=== PATIENT | female | born 1985 | race Caucasian/White ===

== ENCOUNTER → 2019-10-28 10:49 | Outpatient (CLI) | payer OTHER, SELFPAY ==
[2019-10-28 10:13] VITALS: BMI 31.7
[2019-10-28 11:11] LABS: Absolute Lymphocyte Count 3.75 X10^3/uL (0.83-4.51); Absolute Neutrophil Count 7.8 X10^3/uL (2.0-7.7); Basophil# 0.05 X10^3/uL; Basophil% 0.4 % (0-1); Eosinophil# 0.48 X10^3/uL; Eosinophils% 3.8 % (0-5); Hematocrit 40.4 % (37-47); Lymphocyte # 3.75 X10^3/ul (4.0); Lymphocyte % 29.3 % (19-41); Mean Corp Hgb Conc 32.2 g/dL (32-36); Mean Corpuscular Volume 86.9 fL (81-99); Mean Platelet Vol. 9.8 fl (6.2-12.0); Monocyte# 0.66 X10^3/uL; Monocyte% 5.2 % (0-10); NRBC Flagged by Analyzer 0 % (0-5); Neutrophil % 60.9 % (47-70); Platelet Count 428 K/mm3 (150-450); RBC Distribution Width CV 13.4 % (11.6-14.6); RBC Distribution Width SD 42.5 fl (35.1-43.9); Red Blood Count 4.65 M/mm3 (4.2-5.4); White Blood Count 12.8 K/mm3 (4.4-11.0)
[2019-10-28 11:32] LABS: Thyroid Stim Hormone (TSH) 0.26 uIU/mL (0.358-3.74)
[2019-10-28 12:26] LABS: HIV - WCH Non-Reactive (Nonreactive)
[2019-10-28 13:48] LABS: Chlamydia Trachomatis by PCR Negative (Negative); Neisserai gonorrhoeae by PCR Negative (Negative); Probe Check PASS; Sample Adequacy Control PASS; Specimen Processing Control PASS
[2019-10-28 19:03] LABS: Chlamydia Trachomatis by PCR Negative (Negative); Neisserai gonorrhoeae by PCR Negative (Negative); Probe Check PASS; Sample Adequacy Control PASS; Specimen Processing Control PASS
[2019-10-29 04:31] LABS: Rapid Plasmin Reagin (RPR) NONREACTIVE (NONREACTIVE)
[2019-10-31 17:53] LABS: HSV 2 IgG < 0.91 index (0.00-0.90)
[2019-11-05 05:41] LABS: HPV APTIMA, High Risk Negative (Negative)
[2020-07-15 14:13] VITALS: BMI 35.8
== END ==
PROVIDERS: Nurse Practitioner Women's Health; PCP Family Medicine; Referring Provider Obstetrics & Gynecology; Visit Provider Obstetrics & Gynecology
DX: Z12.4 Encounter for screening for malignant neoplasm of cervix (principal); Z11.3 Encounter for screening for infections with a predominantly sexual mode of transmission
CPT/HCPCS: 36415; 84443; 85025; 86592; 86695; 86696; 86703; 87491; 87591; 87624; 88175; G0145

== ENCOUNTER → 2019-11-04 18:18 | Outpatient (CLI) | payer OTHER, SELFPAY ==
[2019-10-28 10:13] VITALS: BMI 31.7
--- NOTE | 2019-11-04 18:25 | US_ITS ---
STUDY: ULTRASOUND OF THE FEMALE PELVIS - COMPLETE REASON FOR EXAM: Female, 34 years old. HX FIBROIDS HEAVY BLEEDING LMP: TECHNIQUE: Transvaginal TECHNICAL QUALITY: Adequate. COMPARISON: None. FINDINGS: The uterus is anteverted and is in a midline position. The uterus measures 8.8 x 7.6 x 5.2 cm. Multiple nabothian cysts. The endometrium measures 3 mm in thickness, and is hyperechoic. There is no demonstrated endometrial mass. Multiple myometrial masses are present compatible with fibroids. The largest measures up to 4.2 cm in size. I.U.D. - The patient does not have an I.U.D. The right ovary is visualized. The right ovary measures 3.0 x 2.2 x 1.7 cm. There is no right ovarian cyst or ovarian mass. There is no visualized right adnexal mass or complex lesion. There is normal arterial and normal venous vascularity. The left ovary is visualized. The left ovary measures 3.7 x 2.0 x 1.5 cm. There is no left ovarian cyst or ovarian mass. There is no visualized left adnexal mass or complex lesion. There is normal arterial and normal venous vascularity. There is no fluid in the cul-de-sac. Polycystic ovary disease: No. US/Transvaginal Non- IMPRESSION: Multiple myometrial masses are present compatible with fibroids. The largest measures up to 4.2 cm in size. Electronically Signed: Nicholas Velez MD at 19:52 EDT Tel , Service support ,
== END ==
LOC: US 18:19
PROVIDERS: PCP Family Medicine; Visit Provider Nurse Practitioner Women's Health
DX: N92.1 Excessive and frequent menstruation with irregular cycle (principal); D25.9 Leiomyoma of uterus, unspecified
CPT/HCPCS: 76830

== ENCOUNTER 2020-02-24 08:21 | Observation (INO) | payer OTHER, SELFPAY ==
[2020-01-11 11:18] VITALS: BMI 31.7
[2020-02-17 10:42] LABS: Thyroid Stim Hormone (TSH) 0.24 uIU/mL (0.358-3.74)
[2020-02-23] VITALS (14 sets, daily range): BP systolic 95–142; BP diastolic 44–88; PULSE 72–114; RESP 18–22; TEMP 36.4–37.4; O2SAT 90–100; BMI 32.7
[2020-02-23 07:47] LABS: Internal QC Validated? YES +Cl - CLEAR BKGD; Pregnancy, Urine Negative Negative
--- NOTE | 2020-02-23 07:49 | HP.PCM_ITS ---
- Problem List (1) History of endometriosis Status: Acute (2) History of uterine fibroid Status: Acute (3) Menorrhagia with irregular cycle Status: Acute History and Physical Date of Admission: 02/23/20 Intake Vital Signs 01/11/20 Height 5 ft 4 in 01/11/20 Weight: 194 lb 4 oz 01/11/20 BMI 33.3 01/11/20 BP 112/74 Intake Visit Reasons: Surgery consult Senior Commissions Analyst Required: No Is patient in pain?: No Allergies morphine Allergy (Mild, Verified 01/11/20 11:17) other Medications gabapentin 100 mg capsule 100 mg PO TID 10/28/19 [History Confirmed 01/11/20] levothyroxine 150 mcg tablet 150 mcg PO DAILY 10/28/19 [History Confirmed 01/11/20] oxycodone-acetaminophen 5 mg-325 mg tablet 1 tab PO Q8H PRN 10/28/19 [History Confirmed 01/11/20] venlafaxine 75 mg tablet 75 mg PO DAILY 10/28/19 [History Confirmed 01/11/20] zolpidem 10 mg tablet 10 mg PO QHS PRN 10/28/19 [History Confirmed 01/11/20] norethindrone (contraceptive) 0.35 mg tablet 0.35 mg PO QDAY #84 tab 11/17/19 [Rx Confirmed 01/11/20] Post menopausal: No Patient : No : No PFSH Medical History Anxiety and depression (Acute) Endometriosis (Acute) Thyroid cancer (Acute) Surgical History H/O laparoscopy (Acute) H/O thyroidectomy (Acute) History of cholecystectomy (Acute) History of hand surgery (Acute) Family History Father Diabetes Cancer liver Mother Diabetes Social History (Updated 01/12/20 @ 14:[address] 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 She experiences bleeding anywhere 1 to 2 weeks out of every single month. Bleeding lasts 8 days and occurs at intervals of every 2 to 4 weeks. On the heaviest day of her period she is changing a pad and tampon every hour. 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 She has a family history of a father and a paternal uncle who both of liver cancer and these liver tumors are followed with yearly MRIs. She was started on norethindrone, however this has not assisted with her bleeding. She is here today to discuss surgical interventions to manage her heavy pain in pain.She has had 2 EABs, however she has never had a child. She strongly desires future fertility. Female Reproductive History Questions: Metorrhagia: No, Sexually active: No Menopausal Symptoms: No hot flashes Pregancy History 0 Elective abortions Hx Para Spontaneous abortions Hx # Term Pregnancies Ectopic pregnancies Hx # Pregnancies Multiple births # of living children ROS Const Constitutional: Denies chills, fatigue, fever(s), weight gain or weight loss : Reports heavy periods, metrorrhagia and pelvic pain; denies difficulty urinating, painful urination, genital lesions, blood in urine, hot flashes, light periods, prolapse symptoms, sexual problems, urinary frequency, urinary hesitancy, urinary urgency, vaginal discharge, vaginal dryness, vaginal odor or vaginal itching Exam Const General: cooperative, healthy appearing, comfortable, no acute distress, well developed, well groomed Neck Neck: normal visual inspection, full ROM Resp Effort & Inspection: normal respiratory effort, able to speak in complete sentences, symmetric chest movement Cardio Rate: regular rate General: bladder normal to palpation External Female Exam: normal external appearance, normal appearance of the urethra, no lesions, no lacerations Urethra: normal appearance of the urethra Speculum Exam - Vagina: vaginal bleeding, no masses, nontender Speculum Exam - Cervix: nontender Bimanual Exam- Vagina & Uterus: normal vaginal palpation, bladder normal to palpation, No cervical tenderness, uterine mobility normal, normal cervical palpation, uterus non-tender, uterus enlarged, uterus nodular (multiple fibroids - large posterior and left lateral fibroids palpable), nontender OB/External & Speculum: vaginal bleeding Speculum Exam: vaginal bleeding Skin General: no rashes or lesions noted, elasticity normal, turgor normal Lesions: no lesions Rashes: no rashes Neuro General: alert, awake, oriented x3 Cranial Nerves: CN's II-XI intact bilaterally, PERRL, EOM intact bilaterally Cognition: normal cognition Speech: speech normal Gait: normal gait Extrem General: normal to inspection, full ROM, no pedal edema Psych Appearance: grossly normal Mental Status: mental status grossly normal Mood: congruent mood Affect: normal affect Speech and Movement: speech and movement normal Attitude: cooperative Thought Process: normal Thought Content: normal Assessment & Plan 1. Menorrhagia with irregular cycle N92.1 Plan Presents for surgical consult for heavy menstrual bleeding and pelvic pain with fibroid uterus. She has a documented history of endometriosis. Operative report reviewed from diagnostic laparoscopy in 2016-this illustrates evidence of endometriosis involving the uterus and the posterior cul-de-sac. Patient also had some adhesive disease at this point in time. Transvaginal ultrasound reviewed. This shows a total of 10 fibroids with multiple large fibroids measuring up to 4 cm in greatest diameter. And is not a candidate for combination oral contraceptive pills due to a benign hepatic tumor which has the potential to enlarge with estrogen. She has been on progesterone only pills in the past, however has not noticed a significant improvement in her bleeding. Management options discussed with patient including IUD insertion, myomectomy, and hysterectomy. She has never had a child and wishes to maintain her fertility. She is not interested in using IUD for management of bleeding as she would like to become in the near future and would like to make sure that her bleeding is controlled before she begins attempting . Patient would like to proceed with myomectomy.Will also plan for fulguration of endometriosis diagnosed at the time of surgery. We discussed the nature of the procedure to be performed. The risks, benefits, indications, and alternatives to the procedure were discussed with the patient. We discussed the possible risk of bleeding which could result from incising the uterus or from damage to surrounding blood vessels. The patient is agreeable to blood products if medically necessary. We discussed the possibility of infection inside the abdomen or at the incision sites. She understands that if she were to develop an infection she could require hospitalization or antibiotics. We discussed the possibility of damage to structures sitting around the uterus including uterus, tubes, ovaries, bowel, bladder. We discussed that in the event of injury to 1 of the structures she could require intraoperative consult with general surgery or urology and that this could require potential prolonged hospitalization or reoperation.Discussed that the procedure can possibly be performed in a minimally invasive manner using a robotic approach. Discussed that with performing a robotic myomectomy, there is always the chance that the procedure may not be able to be performed minimally invasive and that she could require laparotomy in order to complete the procedure. Patient is agreeable to laparotomy if indicated at the time of surgery. Discussed that I will attempt to remove as many of the fibroids as possible, however there is always a possibility that not all fibroids will be able to be removed. Also discussed that if she were to have excessive bleeding, there is always a possibility of having to perform a hysterectomy at the time of the procedure. Discussed that in the event of damage to either tube or ovary, the structures could have to be removed at the time of surgery. Discussed that I would do everything in my power to avoid removing ovaries, however she is aware that this is a possibility.We discussed performing chromotubation at the completion of the procedure in order to verify that her tubes are open. We discussed that following a myomectomy, she will likely require a section done at 37 weeks in any future pregnancies due to the concern for uterine rupture at the sites of the incisions from the myomectomy. All questions were answered to the best of my ability. The patient voices understanding and agrees to proceed with robotic assisted myomectomy, possible laparotomy, fulguration of endometriosis, chromotubation. Coding Level of Care Code Off vis,est,level 4 Diagnoses Menorrhagia with irregular cycle N92.1 ??Menorrhagia type: with irregular cycle UPDATE- I have seen the patient and performed any clinically relevant updates to the history and physical exam. Cheyenne Ohara MD
[2020-02-23] MEDS: Lactated Ringers 1,000 ML 100 ML IV ×4 (08:13→15:43)
[2020-02-23 08:45] LABS: Hematocrit 39.2 % (37-47); Hemoglobin 12.5 g/dL (12.0-15.0); Mean Corp Hgb Conc 31.9 g/dL (32-36); Mean Corpuscular Hgb 27.5 pg (27.0-32.0); Mean Corpuscular Volume 86.2 fL (81-99); Platelet Count 361 K/mm3 (150-450); RBC Distribution Width CV 12.9 % (11.6-14.6); RBC Distribution Width SD 40.4 fl (35.1-43.9); Red Blood Count 4.55 M/mm3 (4.2-5.4); White Blood Count 8.4 K/mm3 (4.4-11.0)
--- NOTE | 2020-02-23 09:00 | MISC_PTH ---
PATIENT: ELYSE KRAMER LOC: [facility] U#:[id number] AGE/SX: 35/F ROOM: [facility]315 RE02/24/[address]: Dr. Cheyenne Ohara MD : 1985 BED: 1 DIS: 02/25/2020 SPEC #: [id number] RECD: 02/23/20 14:57 STATUS: SUSU PARIKHKee #: [id number] CASI: 02/23/20 09:[address]: Cheyenne Ohara DEPT: SURGICAL PATHOLOGY RECD BY: Amarilys Coley ENTERED: 02/24/20 07:09 SP TYPE: MISC OTHR DR: MD Dr. Adán Wilkinson MD Tissues: Fibrous tissue Procedures: Surgery Specimen Level III HEADER OPERATION: Robotic assisted myomectomy, chromotubation PRE-OP DIAGNOSIS: Menorrhagia with irregular cycle TISSUE SUBMITTED: Uterine fibroids MICROSCOPIC DIAGNOSIS Uterine fibroids: Leiomyomas (largest measuring 6 cm in greatest dimension). DIAMANTE:vernon 02/25/20 MICROSCOPIC DESCRIPTION Slides are reviewed. GROSS DESCRIPTION Received in fixative is one container labeled with the patient's name and designated uterine fibroids. The specimen consists of eight variable sized pieces of meraz nodular masses weighing in aggregate 41 gm and measuring in aggregate 8 x 7 x 3 cm and measuring 1.5 to 6 cm in greatest dimension. Sections of these masses reveal meraz whorled cut surfaces without areas of hemorrhage, necrosis or cystic degeneration. Professional Athlete sections are submitted in four cassettes as follows: 1 - largest nodular mass, 2 - second largest nodular mass, 3 & 4 - smaller nodular masses. / DIAMANTE:vernon 02/24/20 TC:1 CPT: 27997
[2020-02-23] MEDS: Cefazolin 2 GM in 0.9% Normal Saline 100 ML IV (09:06)
[2020-02-23] MEDS: Vasopressin 20 UNITS/ML Vial (10:15)
[2020-02-23] MEDS: Bupivacaine 0.25% 30 ML Vial (12:00)
[2020-02-23] MEDS: Ketorolac 30 MG/ML Syringe IV ×3 (13:05→23:12)
--- NOTE | 2020-02-23 15:19 | SUR.PHASEI ---
telephoned dr randhawa. informed her of pt discomfort. pt vital signs stable. no bleeding noted. abdomen soft. dr verbalized understanding. reported no new orders. continue with current plan of care. pt okay to go upstairs to her room.
[2020-02-23] MEDS: Gabapentin 100 MG Capsule PO ×2 (16:11→18:05)
--- NOTE | 2020-02-23 16:37 | OP.PCM_ITS ---
Problem List (1) History of endometriosis Status: Acute (2) History of uterine fibroid Status: Acute (3) Menorrhagia with irregular cycle Status: Acute Report of Operation Date of Procedure: 02/23/20 Pre-Operative Diagnosis: Abnormal uterine bleeding, fibroid uterus Post-Operative Diagnosis: Same Surgery/Procedure Performed:: Robotic assisted abdominal myomectomy, chromopertubation Description of Surgical Findings:: Fibroid uterus with primarily subserosal fibroids. No evidence of adhesions or endometriosis. Bilateral spill on chromopertubation at completion of procedure. straw hat brim raiser operator: Gillian Rodriguez straw hat brim raiser operator: Saad Glass Type of Anesthesia:: General Special Medications: Ancef 2g Specimen's removed: Uterine fibroids Estimated Blood Loss (mL): 200ml Description of Procedure: The patient was taken to the operating room where general anesthesia was obtained without difficulty. She was prepped and draped in the dorsal lithotomy position with yellowfin stirrups. Attention was first directed to the vagina. A weighted speculum was placed in the posterior aspect of the vagina and a right angle retractor was used to grasp the anterior lip of the cervix. The uterus sounded to 8 cm. The cervix was sequentially dilated to accommodate placement of a ZUMI uterine manipulator. The manipulator was placed without difficulty. A Pedesren catheter was then placed. All instruments were then removed from the vagina other than the manipulator. Gloves were changed and attention was then directed to the abdominal cavity. A 5 mm skin incision was made in the left upper quadrant at Andres's point. Attempt was made to place a varies needle, however the opening pressure was noted to be higher than desired and therefore the decision was made to use the Optiview scope for entry. The port was placed under direct visualization. Abdominal entry was confirmed and the abdomen was insufflated. Initial inspection of the abdominal cavity revealed no evidence of adhesions. The uterus was inspected and primarily subserosal fibroids were noted. Additional accessory trocar was placed in the right upper quadrant. Robotic trochars were placed in the right and left lower quadrants and approximately 2 cm superior to the umbilicus in the midline. The 5 mm port that was placed initially was extended and a 12 mm port was placed. The patient was placed in steep Trendelenburg and the robot was docked. The fibroids were each injected with dilute vasopressin. Incisions were then made through the serosa until the capsule of the fibroid had been transected. A single-tooth tenaculum was then used to grasp the fibroids and a combination of blunt and sharp dissection using the monopolar scissors was performed in order to remove the fibroids. A total of 7 fibroids were removed with 5 of those fibroids being embedded in the myometrium and 2 pedunculated. A total of 4 incisions were made that went into the myometrium with 2 smaller incisions that went directly under the pedunculated fibroids. The uterine cavity was not entered at any point during the dissection or repair of the defects. Strata fix suture was used in multiple layers to close the myometrium. Strata fix suture was then used to reapproximate the mucosa. The 2 smaller serosal defects were then closed in a [id number] fashion using 3-0 Vicryl suture. On the largest defect posteriorly after closing the remainder of the incisions, a small hematoma was noted to be forming. A large figure of 8 was performed through this area and it was noted to be stable in size with no further bleeding. Hemostasis was achieved using bipolar cautery. The pelvis was copiously irrigated and hemostasis was noted. Chromotubation was then performed and spill was noted from the fallopian tubes bilaterally. Devang was placed over the uterus and no further bleeding was noted. The 7 fibroids were then placed into a 12 mm specimen bag. A approximately 6 cm incision was made suprapubically and carried down to the level of the fascia with the scalpel the fascia was nicked in the midline and the incision was extended laterally using blunt traction. The muscles were in the midline and the peritoneum was entered bluntly. The specimen bag was then removed through the incision and it was confirmed that all 7 specimens remain inside the bag. All ports were then removed from the abdominal cavity. The fascia on the suprapubic incision was closed in a running fashion using 0 Vicryl suture. 3-0 Vicryl was then used in a running fashion to reapproximate the subcutaneous space. 4-0 Monocryl was used in a running subcuticular fashion to close the skin. All port sites were then closed in a simple interrupted fashion using 4-0 Monocryl suture. A Mepilex dressing was placed over the suprapubic incision and small OpSite's were then placed over all of the port sites. The uterine manipulator was then removed from the uterine cavity. The procedure was deemed complete. All counts were correct x2. The patient was awakened from anesthesia and taken to the recovery room in stable condition. - Complications None apparent - Admit VTE Documentation VTE Present on Admission: No VTE Mechan Device Prophylaxis: SCD's VTE Pharm Prophylaxis ordered?: No Multi Select Codes - Urinary/Genital Urinary/Genital CPT Codes: 13417 Myomectomy, >5 fibroids >250gr uterus, 57431 Chromotubation
[2020-02-23] MEDS: oxyCODONE 5 MG Tablet PO ×2 (18:06→23:13)
[2020-02-23] MEDS: 0.9% Saline Lock 10 ML Syringe IV (18:06)
[2020-02-23] MEDS: HYDROmorphone 0.5 MG/0.5 ML SYRINGE IV (19:49)
[2020-02-23] MEDS: HYDROmorphone 1 MG/ML Syringe IV (21:57)
[2020-02-23] MEDS: Acetaminophen 500 MG Tablet 1000 MG PO (21:57)
[2020-02-23 21:58] LABS: Absolute Lymphocyte Count 3.51 X10^3/uL (0.83-4.51); Absolute Neutrophil Count 7.5 X10^3/uL (2.0-7.7); Basophil# 0.02 X10^3/uL; Basophil% 0.2 % (0-1); Eosinophil# 0.04 X10^3/uL; Eosinophils% 0.3 % (0-5); Hemoglobin 9.8 g/dL (12.0-15.0); Lymphocyte # 3.51 X10^3/ul (4.0); Lymphocyte % 29.9 % (19-41); Mean Corp Hgb Conc 31.6 g/dL (32-36); Mean Corpuscular Hgb 27.5 pg (27.0-32.0); Mean Corpuscular Volume 86.8 fL (81-99); Mean Platelet Vol. 9.9 fl (6.2-12.0); Monocyte# 0.58 X10^3/uL; Monocyte% 4.9 % (0-10); NRBC Flagged by Analyzer 0 % (0-5); Neutrophil # 7.54 X10^3/uL (2.7-7.7); Neutrophil % 64.4 % (47-70); Platelet Count 305 K/mm3 (150-450); RBC Distribution Width CV 12.9 % (11.6-14.6); RBC Distribution Width SD 41.1 fl (35.1-43.9); Red Blood Count 3.57 M/mm3 (4.2-5.4); White Blood Count 11.7 K/mm3 (4.4-11.0)
[2020-02-23] MEDS: Zolpidem Tartrate 5 MG Tablet PO (23:13)
[2020-02-23] MEDS: Lactated Ringers 1,000 ML 125 ML IV (23:18)
[2020-02-24] MEDS: HYDROmorphone 0.5 MG/0.5 ML SYRINGE 1 MG IV ×2 (02:08→06:09)
[2020-02-24 02:16] VITALS: BP 111/57; PULSE 86; RESP 18; TEMP 36.8; O2SAT 99
[2020-02-24] MEDS: oxyCODONE 5 MG Tablet PO ×5 (03:14→20:13)
[2020-02-24 05:49] LABS: Hematocrit 31.3 % (37-47); Hemoglobin 9.7 g/dL (12.0-15.0); Mean Corpuscular Hgb 27.5 pg (27.0-32.0); Mean Corpuscular Volume 88.7 fL (81-99); Mean Platelet Vol. 9.7 fl (6.2-12.0); Platelet Count 287 K/mm3 (150-450); RBC Distribution Width CV 13.2 % (11.6-14.6); RBC Distribution Width SD 42.5 fl (35.1-43.9); Red Blood Count 3.53 M/mm3 (4.2-5.4); White Blood Count 8.7 K/mm3 (4.4-11.0)
[2020-02-24] MEDS: Ketorolac 30 MG/ML Syringe IV ×3 (05:52→17:57)
[2020-02-24] MEDS: Acetaminophen 500 MG Tablet 1000 MG PO ×3 (05:52→22:39)
[2020-02-24] MEDS: Levothyroxine 150 MCG Tablet PO (05:52)
[2020-02-24 06:03] VITALS: BP 128/57; PULSE 81; RESP 18; TEMP 36.3; O2SAT 99
[2020-02-24 07:20] VITALS: O2SAT 94
[2020-02-24 07:41] VITALS: BP 107/55; PULSE 89; RESP 18; TEMP 36.3; O2SAT 98
[2020-02-24] MEDS: Gabapentin 100 MG Capsule PO ×3 (07:42→16:02)
[2020-02-24] MEDS: Venlafaxine XR 75 MG Capsule PO (07:43)
--- NOTE | 2020-02-24 08:21 | PCM.PN.OB ---
Patient Problems: Active and Suspected Problems (Last Reviewed 01/11/20 @ 11:17 by Sulema Meza) History of endometriosis (Acute) History of uterine fibroid (Acute) Menorrhagia with irregular cycle (Acute) Subjective: Patient seen and examined. Had issues with pain control throughout the night. Has been taking toradol, tylenol, and 10mg of oxycodone with dilaudid for breakthrough. Pain worse on right side and feels like cramps with occasional sharp, shooting pains. Has been tolerating liquids by mouth, but has not really had an appetite. Has passed minimal gas. Denies nausea and vomiting. Reports relief with pain medication, but becomes severe when medications wear off. Objective: Laboratory Tests 02/24/20 02/23/20 02/23/20 Range/Units 05:40 21:42 08:34 WBC 8.7 11.7 H (4.4-11.0) K/mm3 RBC 3.53 L 3.57 L (4.2-5.4) M/mm3 Hgb 9.7 L 9.8 L (12.0-15.0) g/dL Hct 31.3 L 31.0 L (37-47) % MCV 88.7 86.8 (81-99) fL MCH 27.5 27.5 (27.0-32.0) pg MCHC 31.0 L 31.6 L (32-36) g/dL RDW Std Deviation 42.5 41.1 (35.1-43.9) fl RDW Coeff of Dain 13.2 12.9 (11.6-14.6) % Plt Count 287 305 (150-450) K/mm3 MPV 9.7 9.9 (6.2-12.0) fl Immature Gran % (Auto) 0.300 (0.0-0.9) % Neut % (Auto) 64.4 (47-70) % Lymph % (Auto) 29.9 (19-41) % [place] % (Auto) 4.9 (0-10) % Eos % (Auto) 0.3 (0-5) % Baso % (Auto) 0.2 (0-1) % Absolute Neuts (auto) 7.5 (2.0-7.7) X10^3/uL Absolute Lymphs (auto) 3.51 (0.83-4.51) X10^3/uL Nucleated RBC % 0 (0-5) % TSH (0.358-3.74) uIU/mL Urine Test Negative COVID-19 ([facility]) (Not Detected) Blood Type B NEGATIVE Antibody Screen NEGATIVE 02/23/20 02/23/20 02/17/20 Range/Units 08:34 07:43 08:35 WBC 8.4 (4.4-11.0) K/mm3 RBC 4.55 (4.2-5.4) M/mm3 Hgb 12.5 (12.0-15.0) g/dL Hct 39.2 (37-47) % MCV 86.2 (81-99) fL MCH 27.5 (27.0-32.0) pg MCHC 31.9 L (32-36) g/dL RDW Std Deviation 40.4 (35.1-43.9) fl RDW Coeff of Dain 12.9 (11.6-14.6) % Plt Count 361 (150-450) K/mm3 MPV 10.0 (6.2-12.0) fl Immature Gran % (Auto) (0.0-0.9) % Neut % (Auto) (47-70) % Lymph % (Auto) (19-41) % [place] % (Auto) (0-10) % Eos % (Auto) (0-5) % Baso % (Auto) (0-1) % Absolute Neuts (auto) (2.0-7.7) X10^3/uL Absolute Lymphs (auto) (0.83-4.51) X10^3/uL Nucleated RBC % (0-5) % TSH (0.358-3.74) uIU/mL Urine Test Negative Negative COVID-19 ([facility]) Not Detected (Not Detected) Blood Type Antibody Screen 02/17/20 Range/Units 08:34 WBC (4.4-11.0) K/mm3 RBC (4.2-5.4) M/mm3 Hgb (12.0-15.0) g/dL Hct (37-47) % MCV (81-99) fL MCH (27.0-32.0) pg MCHC (32-36) g/dL RDW Std Deviation (35.1-43.9) fl RDW Coeff of Dain (11.6-14.6) % Plt Count (150-450) K/mm3 MPV (6.2-12.0) fl Immature Gran % (Auto) (0.0-0.9) % Neut % (Auto) (47-70) % Lymph % (Auto) (19-41) % [place] % (Auto) (0-10) % Eos % (Auto) (0-5) % Baso % (Auto) (0-1) % Absolute Neuts (auto) (2.0-7.7) X10^3/uL Absolute Lymphs (auto) (0.83-4.51) X10^3/uL Nucleated RBC % (0-5) % TSH 0.24 L (0.358-3.74) uIU/mL Urine Test Negative COVID-19 ([facility]) (Not Detected) Blood Type Antibody Screen - Physical Exam Vitals/I&O's: Vital Signs Temp Pulse Resp BP Pulse Ox 97.3 F L 89 18 107/55 L 98 02/24/20 07:41 02/24/20 07:41 02/24/20 07:41 02/24/20 07:41 02/24/20 07:41 Oxygen Flow Rate (L/min) 2 Oxygen Delivery Method Room Air Weight: 189 lb 0.001 oz Body Mass Index (BMI) 32.7 Intake and Output for Last 24 Hours 02/22/20 02/23/20 02/24/20 23:59 23:59 23:59 Intake Total 3531.67 / 3531.67 1000 / 1000 Output Total 875 / 875 950 / 950 Balance 2656.67 / 2656.67 50 / 50 General: Alert, Oriented x3, Cooperative, No apparent distress, Well developed, Well nourished HEENT: Atraumatic, PERRLA, EOMI Oral: Moist Mucosa Neck: Supple Lungs: Clear to auscultation, Normal air movement Cardiovascular: Regular rate, Regular Rhythm Abdomen: Bowel Sounds Present, Soft, Non-Distended, Guarding - voluntary, - - Abdomen with diffuse mild tenderness, patient distractable Extremities: No edema Neurological: Cranial nerves II-XII grossly intact, Neuro grossly intact Psych/Mental Status: Normal Affect Laboratory Results 02/23/20 08:34: WBC 8.4, RBC 4.55, Hgb 12.5, Hct 39.2, MCV 86.2, MCH 27.5, MCHC 31.9 L, RDW Std Deviation 40.4, RDW Coeff of Dain 12.9, Plt Count 361, MPV 10.0 02/23/20 08:34: Blood Type B NEGATIVE, Antibody Screen NEGATIVE 02/23/20 21:42: WBC 11.7 H, RBC 3.57 L, Hgb 9.8 L, Hct 31.0 L, MCV 86.8, MCH 27.5, MCHC 31.6 L, RDW Std Deviation 41.1, RDW Coeff of Dain 12.9, Plt Count 305, MPV 9.9, Immature Gran % (Auto) 0.300, Neut % (Auto) 64.4, Lymph % (Auto) 29.9, [place] % (Auto) 4.9, Eos % (Auto) 0.3, Baso % (Auto) 0.2, Absolute Neuts (auto) 7.5, Absolute Lymphs (auto) 3.51, Nucleated RBC % 0 02/24/20 05:40: WBC 8.7, RBC 3.53 L, Hgb 9.7 L, Hct 31.3 L, MCV 88.7, MCH 27.5, MCHC 31.0 L, RDW Std Deviation 42.5, RDW Coeff of Dain 13.2, Plt Count 287, MPV 9.7 Current Medications Acetaminophen (Acetaminophen 500 Mg Tablet) 1,000 mg PO Q8 [facility] Last Admin: 02/24/20 05:52 Dose: 1,000 mg Documented by: Belladonna Alkaloids/Opium (Opium/Belladonna Alkaloids 60 Mg/15 Mg Suppository) 60 mg RECTAL Q6H PRN PRN PRN Reason: BLADDER SPASMS Gabapentin (Gabapentin 100 Mg Capsule) 100 mg PO TIDCM [facility] Last Admin: 02/24/20 07:42 Dose: 100 mg Documented by: Hydromorphone HCl (Hydromorphone 0.5 Mg/0.5 Ml Syringe) 0.5 - 1 mg IV Q4H PRN PRN PRN Reason: Pain Score 6-10 Sodium Chloride () 250 mls @ 15 mls/hr IV .[id number] PRN PRN Reason: Saline Flush Ketorolac Tromethamine (Ketorolac 30 Mg/Ml Syringe) 30 mg IV Q6 [facility] Stop: 02/28/20 12:54 Last Admin: 02/24/20 05:52 Dose: 30 mg Documented by: Levothyroxine Sodium (Levothyroxine 150 Mcg Tablet) 150 mcg PO DAILY@0600 [facility] Last Admin: 02/24/20 05:52 Dose: 150 mcg Documented by: Ondansetron HCl (Ondansetron 4 Mg/2 Ml Vial) 4 mg IV Q4H PRN PRN PRN Reason: NAUSEA Oxycodone HCl (Oxycodone 5 Mg Tablet) 5 - 10 mg PO Q4H PRN PRN PRN Reason: Pain Score 4-10 Last Admin: 02/24/20 07:38 Dose: 10 mg Documented by: Simethicone (Simethicone 80 Mg Tablet) 80 mg PO PCHS [facility] Last Admin: 02/24/20 07:43 Dose: 80 mg Documented by: Sodium Chloride (0.9% Saline Lock 10 Ml Syringe) 10 - 40 ml IV UD PRN PRN Reason: SALINE FLUSH Last Admin: 02/23/20 18:06 Dose: 10 ml Documented by: Venlafaxine HCl (Venlafaxine Xr 75 Mg Capsule) 75 mg PO DAILY [facility] Last Admin: 02/24/20 07:43 Dose: 75 mg Documented by: Zolpidem Tartrate (Zolpidem Tartrate 5 Mg Tablet) 5 mg PO QHS PRN PRN Reason: SLEEP Last Admin: 02/23/20 23:13 Dose: 5 mg Documented by: Medical Necessity - Tobacco Use Smoking Status: Never smoker Tobacco Use: Non-smoker Assessment/Plan All Active Problems (Last Reviewed 01/11/20 @ 11:17 by Sulema Meza) History of endometriosis (Acute) History of uterine fibroid (Acute) History of HPV infection (Acute) Menorrhagia with irregular cycle (Acute) Dysmenorrhea (Acute) 34yo F POD#1 s/p robotic assisted abdominal myomectomy, chromotubation 1. Post-op state - Patient with continued issues with pain control - still requiring IV dilaudid for pain. B&O suppositories ordered. Recommended scheduled simethicone as suspect largely gas pain. Recommend ambulation. - UOP adequate - dougherty removed this am - Vital signs stable - Hb last night decreased from 12 to 9.8. Hb 9.7 this am so no concern for post-operative bleeding - WBC normal this am - Passing minimal gas. Bowel sounds normal. - Discussed with patient that I am unable to discharge her to home while she still has severe pain. Will work on obtaining pain control this am. Plan to reassess this afternoon to see if able to transition to PO pain meds. Will likely need to stay additional night for pain control 2. Hypothyroid - Continue home meds
[2020-02-24] MEDS: HYDROmorphone 0.5 MG/0.5 ML SYRINGE IV ×4 (09:43→22:41)
[2020-02-24] MEDS: 0.9% Saline Lock 10 ML Syringe IV ×5 (09:47→22:56)
[2020-02-24 13:59] VITALS: BP 108/61; PULSE 95; RESP 18; TEMP 36.7; O2SAT 97
[2020-02-24] MEDS: Polyethylene Glycol 3350 17 GM PACKET PO (17:56)
[2020-02-24 20:00] VITALS: BP 102/56; PULSE 67; RESP 16; TEMP 36.7; O2SAT 95
[2020-02-24] MEDS: Zolpidem Tartrate 5 MG Tablet PO (22:41)
[2020-02-24] MEDS: Ondansetron 4 MG/2 ML Vial IV (22:56)
[2020-02-25] MEDS: Ketorolac 30 MG/ML Syringe IV ×2 (00:25→05:34)
[2020-02-25] MEDS: 0.9% Saline Lock 10 ML Syringe IV ×4 (00:25→07:41)
[2020-02-25] MEDS: oxyCODONE 5 MG Tablet PO ×3 (00:29→11:40)
[2020-02-25 02:00] VITALS: BP 110/51; PULSE 64; RESP 16; TEMP 36.7; O2SAT 97
[2020-02-25] MEDS: HYDROmorphone 0.5 MG/0.5 ML SYRINGE IV ×2 (02:41→07:41)
[2020-02-25] MEDS: Levothyroxine 150 MCG Tablet PO (05:34)
[2020-02-25] MEDS: Acetaminophen 500 MG Tablet 1000 MG PO ×2 (05:34→13:08)
[2020-02-25 07:40] VITALS: O2SAT 98
[2020-02-25] MEDS: Gabapentin 100 MG Capsule PO ×2 (07:43→11:39)
[2020-02-25] MEDS: Polyethylene Glycol 3350 17 GM PACKET PO (07:44)
[2020-02-25] MEDS: Venlafaxine XR 75 MG Capsule PO (07:44)
[2020-02-25 07:46] VITALS: BP 99/59; PULSE 86; RESP 18; TEMP 36.8; O2SAT 98
[2020-02-25] MEDS: Ondansetron 4 MG/2 ML Vial IV (07:51)
--- NOTE | 2020-02-25 08:19 | PN.OBGYN_ITS ---
Patient Problems: Active and Suspected Problems (Last Reviewed 01/11/20 @ 11:17 by Sulema Meza) History of endometriosis (Acute) History of uterine fibroid (Acute) Menorrhagia with irregular cycle (Acute) Subjective: Patient reports feeling slightly better overnight aside from nausea. Continues to pass gas which helps with pain. Pain medications helping with pain, but did still require IV pain meds overnight. Patient voices strong desire to go home today. Reports no longer feeling nauseous. Did also have small BM. - Physical Exam Vitals/I&O's: Vital Signs Temp Pulse Resp BP Pulse Ox 98.2 F 86 18 99/59 L 98 02/25/20 07:46 02/25/20 07:46 02/25/20 07:46 02/25/20 07:46 02/25/20 07:46 Oxygen Flow Rate (L/min) 2 Oxygen Delivery Method Room Air Weight: 189 lb 0.001 oz Body Mass Index (BMI) 32.7 Intake and Output for Last 24 Hours 02/23/20 02/24/20 02/25/20 23:59 23:59 23:59 Intake Total 3531.67 / 3531.67 2120 / 2120 600 / 600 Output Total 875 / 875 2150 / 2150 Balance 2656.67 / 2656.67 -30 / -30 600 / 600 General: Alert, Oriented x3, Cooperative, No apparent distress, Well developed, Well nourished HEENT: Atraumatic, PERRLA, EOMI, Normocephalic Oral: Moist Mucosa Neck: Supple Lungs: Clear to auscultation, Normal air movement Cardiovascular: Regular rate, Regular Rhythm Abdomen: Bowel Sounds Present, Soft, Non-Distended, Passing Flatus, Tender - Diffusely mildly TTP, - - incisions c/d/i with dressings in place Neurological: Cranial nerves II-XII grossly intact, Neuro grossly intact Psych/Mental Status: Normal Affect, Appropriate Current Medications Acetaminophen (Acetaminophen 500 Mg Tablet) 1,000 mg PO Q8 [facility] Last Admin: 02/25/20 05:34 Dose: 1,000 mg Documented by: Belladonna Alkaloids/Opium (Opium/Belladonna Alkaloids 60 Mg/15 Mg Suppository) 60 mg RECTAL Q6H PRN PRN PRN Reason: BLADDER SPASMS Last Admin: 02/24/20 16:02 Dose: 60 mg Documented by: Gabapentin (Gabapentin 100 Mg Capsule) 100 mg PO TIDCM [facility] Last Admin: 02/25/20 07:43 Dose: 100 mg Documented by: Sodium Chloride () 250 mls @ 15 mls/hr IV .[id number] PRN PRN Reason: Saline Flush Ibuprofen (Ibuprofen 600 Mg Tablet) 600 mg PO Q6 [facility] Levothyroxine Sodium (Levothyroxine 150 Mcg Tablet) 150 mcg PO DAILY@0600 [facility] Last Admin: 02/25/20 05:34 Dose: 150 mcg Documented by: Ondansetron HCl (Ondansetron 4 Mg/2 Ml Vial) 4 mg IV Q4H PRN PRN PRN Reason: NAUSEA Last Admin: 02/25/20 07:51 Dose: 4 mg Documented by: Oxycodone HCl (Oxycodone 5 Mg Tablet) 5 - 10 mg PO Q4H PRN PRN PRN Reason: Pain Score 4-10 Last Admin: 02/25/20 05:34 Dose: 10 mg Documented by: Polyethylene Glycol (Polyethylene Glycol 3350 17 Gm Packet) 17 gm PO DAILY [facility] Last Admin: 02/25/20 07:44 Dose: 17 gm Documented by: Simethicone (Simethicone 80 Mg Tablet) 80 mg PO [facility] Last Admin: 02/25/20 07:43 Dose: 80 mg Documented by: Sodium Chloride (0.9% Saline Lock 10 Ml Syringe) 10 - 40 ml IV UD PRN PRN Reason: SALINE FLUSH Last Admin: 02/25/20 07:41 Dose: 10 ml Documented by: Venlafaxine HCl (Venlafaxine Xr 75 Mg Capsule) 75 mg PO DAILY [facility] Last Admin: 02/25/20 07:44 Dose: 75 mg Documented by: Zolpidem Tartrate (Zolpidem Tartrate 5 Mg Tablet) 5 mg PO QHS PRN PRN Reason: SLEEP Last Admin: 02/24/20 22:41 Dose: 5 mg Documented by: Medical Necessity - Tobacco Use Smoking Status: Never smoker Tobacco Use: Non-smoker Assessment/Plan All Active Problems (Last Reviewed 01/11/20 @ 11:17 by Sulema Meza) History of endometriosis (Acute) History of uterine fibroid (Acute) History of HPV infection (Acute) Menorrhagia with irregular cycle (Acute) Dysmenorrhea (Acute) 35yoF POD#2 s/p robotic assisted myomectomy, chromopertubation 1. Post-op state - Vital signs stable - UOP adequate - Pain control better, but still requiring IV pain medication. Patient strongly desires DC to home today. Will DC IV pain medications and reassess this afternoon to see if feeling better - Passing gas. Tolerating PO. - CBC ordered for this am - Encouraged ambulation
[2020-02-25 08:44] LABS: Absolute Lymphocyte Count 1.95 X10^3/uL (0.83-4.51); Absolute Neutrophil Count 5.9 X10^3/uL (2.0-7.7); Basophil# 0.01 X10^3/uL; Basophil% 0.1 % (0-1); Eosinophils% 5.6 % (0-5); Hematocrit 31.6 % (37-47); Hemoglobin 9.8 g/dL (12.0-15.0); Lymphocyte # 1.95 X10^3/ul (4.0); Mean Corpuscular Hgb 27.5 pg (27.0-32.0); Mean Corpuscular Volume 88.5 fL (81-99); Mean Platelet Vol. 9.7 fl (6.2-12.0); Monocyte# 0.51 X10^3/uL; Monocyte% 5.8 % (0-10); NRBC Flagged by Analyzer 0 % (0-5); Neutrophil # 5.85 X10^3/uL (2.7-7.7); Neutrophil % 66.2 % (47-70); Platelet Count 312 K/mm3 (150-450); RBC Distribution Width CV 12.9 % (11.6-14.6); Red Blood Count 3.57 M/mm3 (4.2-5.4); White Blood Count 8.9 K/mm3 (4.4-11.0)
[2020-02-25] MEDS: Ibuprofen 600 MG Tablet PO (11:39)
--- NOTE | 2020-02-25 12:51 | DCINST_ITS ---
- Discharge Diagnoses Current Active Problems: Current Active and Chronic Problems (Last Reviewed 01/11/20 @ 11:17 by Sulema Meza) History of endometriosis (Acute) History of uterine fibroid (Acute) Menorrhagia with irregular cycle (Acute) Reason(s) for Visit for Discharge Instructions: s/p myomectomy You will use the following diet at home:: No restrictions Discharge Activity: May not drive while taking narcotic pain medications., May Shower May shower in (days): 1 May resume sexual activity in: 1-2 weeks Call your doctor if your incision/area has: Continuous Slow Oozing, Sudden In creased Bleeding, Increased Pain/ Swelling, Increased Redness, Foul Smelling Discharge, Swelling at the incision site Call your doctor if you observe: Fever of 101 or Higher, Inability to urinate, Inability to have a bowel movement, Using more than one pad per hour, Shortness of breath, Dizziness, Chest pain, Uncontrolled pain Suture Line Care: Avoid Pulling/Pushing, Avoid Pinching/Bending Remove Dressing in (days):: 7 Cleanse incision/area with: Soap & Water Instructions: Myomectomy Allergies/Adverse Reactions: Allergies morphine Allergy (Mild, Verified 02/23/20 07:49) other Sulfa (Sulfonamide Antibiotics) Adverse Reaction (Verified 02/23/20 07:49) Nausea Medications to take at Discharge gabapentin 100 mg capsule 100 mg PO TID 10/28/19 levothyroxine 150 mcg tablet 150 mcg PO DAILY 10/28/19 oxycodone-acetaminophen 5 mg-325 mg tablet 1 tab PO Q8H PRN 10/28/19 venlafaxine 75 mg tablet 75 mg PO DAILY 10/28/19 zolpidem 10 mg tablet 10 mg PO QHS PRN 10/28/19 Ibuprofen [Motrin] 800 mg PO TID PRN PRN #60 tab 02/25/20 Ondansetron [Ondansetron Odt] 4 mg PO Q8H PRN PRN #30 tab.rapdis 02/25/20 Oxycodone [Oxyir] 5 mg PO Q6H PRN PRN 7 Days #28 tablet 02/25/20 The following prescriptions were given: Ibuprofen [Motrin] 800 mg PO TID PRN PRN #60 tab PRN Reason: Pain Score 1-5 Transmission Status: Pending to [facility] Ondansetron [Ondansetron Odt] 4 mg PO Q8H PRN PRN #30 tab.rapdis PRN Reason: Nausea Transmission Status: Pending to [facility] Oxycodone [Oxyir] 5 mg PO Q6H PRN PRN 7 Days #28 tablet PRN Reason: Pain Score 6-10/10 Transmission Status: Sent to [facility] Primary Care Physician: Adán Maloney MD [Primary Care Provider] - Test Results: Test results from this visit will be discussed in further detail at your follow- up appointment, if applicable. Please Follow Up With: Cheyenne Ohara MD When: 2 weeks
--- NOTE | 2020-02-25 12:54 | PCM.DC.SUM ---
Discharge Date and Diagnosis - Problem List Patient Problems: Active and Suspected Problems (Last Reviewed 01/11/20 @ 11:17 by Sulema Meza) History of endometriosis (Acute) History of uterine fibroid (Acute) Menorrhagia with irregular cycle (Acute) Date of Admission: 02/23/20 Date of Discharge: 02/25/20 - Primary Discharge Diagnosis Acute Problems: Active Problems (Last Reviewed 01/11/20 @ 11:17 by Sulema Meza) History of endometriosis (Acute) History of uterine fibroid (Acute) Menorrhagia with irregular cycle (Acute) Hospital Course and Treatment Imaging Results: NA None Operations: - - robotic assisted abdominal myomectomy, chromotubation Summary of Care Provided: The patient is a 35 year old F who was admitted for post-op care following robotic assisted abdominal myomectomy and chromopertubation on 02/22. She met all post-operative milestones. Her labs were stable after discharge. She stayed one additional night due to difficulty with pain control. She was discharged to home on 02/24 once pain was controlled on oral pain medication. Patient Problems: Active and Suspected Problems (Last Reviewed 01/11/20 @ 11:17 by Sulema Meza) History of endometriosis (Acute) History of uterine fibroid (Acute) Menorrhagia with irregular cycle (Acute) - Physical Exam Vitals/I&O's: Vital Signs Temp Pulse Resp BP Pulse Ox 98.2 F 86 18 99/59 L 98 02/25/20 07:46 02/25/20 07:46 02/25/20 07:46 02/25/20 07:46 02/25/20 07:46 Oxygen Flow Rate (L/min) 2 Oxygen Delivery Method Room Air Weight: 189 lb 0.001 oz Body Mass Index (BMI) 32.7 Intake and Output for Last 24 Hours 02/23/20 02/24/20 02/25/20 23:59 23:59 23:59 Intake Total 3531.67 / 3531.67 2120 / 2120 960 / 960 Output Total 875 / 875 2150 / 2150 Balance 2656.67 / 2656.67 -30 / -30 960 / 960 Laboratory Results 02/25/20 08:34: WBC 8.9, RBC 3.57 L, Hgb 9.8 L, Hct 31.6 L, MCV 88.5, MCH 27.5, MCHC 31.0 L, RDW Std Deviation 42.0, RDW Coeff of Dain 12.9, Plt Count 312, MPV 9.7, Immature Gran % (Auto) 0.300, Neut % (Auto) 66.2, Lymph % (Auto) 22.0, [place] % (Auto) 5.8, Eos % (Auto) 5.6 H, Baso % (Auto) 0.1, Absolute Neuts (auto) 5.9, Absolute Lymphs (auto) 1.95, Nucleated RBC % 0 Current Medications Acetaminophen (Acetaminophen 500 Mg Tablet) 1,000 mg PO Q8 [facility] Last Admin: 02/25/20 05:34 Dose: 1,000 mg Documented by: Belladonna Alkaloids/Opium (Opium/Belladonna Alkaloids 60 Mg/15 Mg Suppository) 60 mg RECTAL Q6H PRN PRN PRN Reason: BLADDER SPASMS Last Admin: 02/24/20 16:02 Dose: 60 mg Documented by: Gabapentin (Gabapentin 100 Mg Capsule) 100 mg PO TIDCM [facility] Last Admin: 02/25/20 11:39 Dose: 100 mg Documented by: Sodium Chloride () 250 mls @ 15 mls/hr IV .[id number] PRN PRN Reason: Saline Flush Ibuprofen (Ibuprofen 600 Mg Tablet) 600 mg PO Q6 [facility] Last Admin: 02/25/20 11:39 Dose: 600 mg Documented by: Levothyroxine Sodium (Levothyroxine 150 Mcg Tablet) 150 mcg PO DAILY@0600 [facility] Last Admin: 02/25/20 05:34 Dose: 150 mcg Documented by: Ondansetron HCl (Ondansetron 4 Mg/2 Ml Vial) 4 mg IV Q4H PRN PRN PRN Reason: NAUSEA Last Admin: 02/25/20 07:51 Dose: 4 mg Documented by: Oxycodone HCl (Oxycodone 5 Mg Tablet) 5 - 10 mg PO Q4H PRN PRN PRN Reason: Pain Score 4-10 Last Admin: 02/25/20 11:40 Dose: 10 mg Documented by: Polyethylene Glycol (Polyethylene Glycol 3350 17 Gm Packet) 17 gm PO DAILY [facility] Last Admin: 02/25/20 07:44 Dose: 17 gm Documented by: Simethicone (Simethicone 80 Mg Tablet) 80 mg PO PCHS [facility] Last Admin: 02/25/20 11:40 Dose: 80 mg Documented by: Sodium Chloride (0.9% Saline Lock 10 Ml Syringe) 10 - 40 ml IV UD PRN PRN Reason: SALINE FLUSH Last Admin: 02/25/20 07:41 Dose: 10 ml Documented by: Venlafaxine HCl (Venlafaxine Xr 75 Mg Capsule) 75 mg PO DAILY [facility] Last Admin: 02/25/20 07:44 Dose: 75 mg Documented by: Zolpidem Tartrate (Zolpidem Tartrate 5 Mg Tablet) 5 mg PO QHS PRN PRN Reason: SLEEP Last Admin: 02/24/20 22:41 Dose: 5 mg Documented by: Discharge Activity: May not drive while taking narcotic pain medications., May Shower May shower in (days): 1 May resume sexual activity in: 1-2 weeks Call your doctor if your incision/area has: Continuous Slow Oozing, Sudden Increased Bleeding, Increased Pain/ Swelling, Increased Redness, Foul Smelling Discharge, Swelling at the incision site Call your doctor if you observe: Fever of 101 or Higher, Inability to urinate, Inability to have a bowel movement, Using more than one pad per hour, Shortness of breath, Dizziness, Chest pain, Uncontrolled pain Suture Line Care: Avoid Pulling/Pushing, Avoid Pinching/Bending Remove Dressing in (days):: 7 Cleanse incision/area with: Soap & Water Home Medications: Medications to take at Discharge gabapentin 100 mg capsule 100 mg PO TID 10/28/19 levothyroxine 150 mcg tablet 150 mcg PO DAILY 10/28/19 oxycodone-acetaminophen 5 mg-325 mg tablet 1 tab PO Q8H PRN 10/28/19 venlafaxine 75 mg tablet 75 mg PO DAILY 10/28/19 zolpidem 10 mg tablet 10 mg PO QHS PRN 10/28/19 Ibuprofen [Motrin] 800 mg PO TID PRN PRN #60 tab 02/25/20 Ondansetron [Ondansetron Odt] 4 mg PO Q8H PRN PRN #30 tab.rapdis 02/25/20 Oxycodone [Oxyir] 5 mg PO Q6H PRN PRN 7 Days #28 tablet 02/25/20 Following Prescriptions Were Given to Patient: Ibuprofen [Motrin] 800 mg PO TID PRN PRN #60 tab PRN Reason: Pain Score 1-5 Transmission Status: Pending to [facility] Ondansetron [Ondansetron Odt] 4 mg PO Q8H PRN PRN #30 tab.rapdis PRN Reason: Nausea Transmission Status: Pending to [facility] Oxycodone [Oxyir] 5 mg PO Q6H PRN PRN 7 Days #28 tablet PRN Reason: Pain Score 6-10 Transmission Status: Sent to [facility] Primary Care Physician: Adán Maloney MD [Primary Care Provider] - Please Follow Up With: Cheyenne Ohara MD When: 2 weeks Patient Instructions: Myomectomy Medical Necessity - Tobacco Use Smoking Status: Never smoker Tobacco Use: Non-smoker Meaningful Use Info Meaningful Use Diagnoses (Choose all that apply): None applicable
[2020-02-25 13:00] VITALS: BP 112/56; PULSE 79; RESP 18; TEMP 36.5; O2SAT 97
== END 2020-02-25 13:55 | disposition home or self-care (01) ==
LOC: SDC 02-25 08:09 → MS3 02-25 11:08
PROVIDERS: Anesthesiology; Admitting Provider Obstetrics & Gynecology; PCP Family Medicine; Referring Provider Obstetrics & Gynecology; Visit Provider Obstetrics & Gynecology
PROC: 0UT94ZZ Resection of Uterus, Percutaneous Endoscopic Approach (ICD-10-PCS; CPT 58350; principal; 2020-02-23 08:40)
DX: D25.2 Subserosal leiomyoma of uterus (principal); N92.1 Excessive and frequent menstruation with irregular cycle; Z20.828 Contact with and (suspected) exposure to other viral communicable diseases; Z85.850 Personal history of malignant neoplasm of thyroid; K21.9 Gastro-esophageal reflux disease without esophagitis; F41.9 Anxiety disorder, unspecified; F32.9 Major depressive disorder, single episode, unspecified; Z79.899 Other long term (current) drug therapy; E03.9 Hypothyroidism, unspecified
CPT/HCPCS: 00840; 58350; 58546; S2900; 36415; 81025; 84443; 85025; 85027; 86850; 86900; 86901; 87635; 88304; 96361; 96374; 96375; 96376; 99218; C9803; J7120; A4216; G0378; G0379; J2405; Q9968; U0003

== ENCOUNTER → 2021-10-11 | Outpatient (CLI) | payer OTHER, SELFPAY | END | disposition home or self-care (01) | LOC: LABSPEC 10-12 08:44 | PROVIDERS: PCP Family Medicine; Visit Provider Nurse Practitioner Women's Health | DX: R10.2 Pelvic and perineal pain (principal) | CPT/HCPCS: 87070; 87205 ==